=== PATIENT | female | born 1960 | race Caucasian/White ===

== ENCOUNTER 2019-12-22 17:19 | Emergency (ER) | payer OTHER ==
[~2019-12-22] VITALS: Ht 162.6 cm; Wt 45.4 kg
[2019-12-22 17:58] LABS: HEMATOCRIT 35.6 % (37.0-47.0); MCH 29.2 pg (26.0-34.0); MCHC 33.7 g/dL (28.0-37.0); MCV 86.6 fL (80.0-100.0); RBC 4.11 mil/uL (4.20-5.00); RDW 14.6 % (10.5-14.5); WBC 5.9 thou/uL (4.0-11.0)
[2019-12-22 18:04] LABS: ANION GAP 9 mmol/L (7-16); BUN 16 mg/dL (7-18); CALCIUM 8.9 mg/dL (8.5-10.1); CHLORIDE 107 mmol/L (98-107); CO2 28 mmol/L (21-32); CREATININE 0.7 mg/dL (0.6-1.0); GLUCOSE 86 mg/dL (74-106); SALICYLATE < 2.8 mg/dL (2.8-20.0); SODIUM 144 mmol/L (136-145)
[2019-12-22 18:57] LABS: URINE BILIRUBIN NEGATIVE (Negative); URINE BLOOD TRACE (Negative); URINE CLARITY CLEAR; URINE COLOR YELLOW; URINE GLUCOSE-RANDOM* NEGATIVE (Negative); URINE KETONES NEGATIVE (Negative); URINE LEUKOCYTES-REFLEX 2+ (Negative); URINE NITRITE-REFLEX NEGATIVE (Negative); URINE PROTEIN (DIPSTICK) 1+ (Negative); URINE UROBILINOGEN 0.2 E.U./dl (0.2-1.0)
[2019-12-22 19:05] LABS: CRYSTALS None Seen /LPF (None Seen); MUCUS 0-3 Light strn/LPF (None Seen); SQUAMOUS 4-10 Moderate /LPF (0-3); URINE RBC 0-2 Rare /HPF (0-2); URINE WBC-REFLEX 6-15 Few /HPF (0-5)
[2019-12-22 19:05] LABS: AMP/METHAMP POSITIVE (Negative); BARBITURATES Negative (Negative); BENZODIAZEPINES Negative (Negative); COCAINE POSITIVE (Negative); METHADONE Negative (Negative); OPIATES Negative (Negative); PCP Negative (Negative)
[2019-12-22 19:06] LABS: HYALINE CASTS 0-3 Few /LPF (None Seen)
[2019-12-22 22:01] VITALS: BP 142/100
--- NOTE | 2019-12-23 07:44 | EKG ---
[facility] [place] [address] ELECTROCARDIOGRAM REPORT Name: TANYA MULLINS Room #: [facility]#: [id number] Admission: 12/22/19 Attend Phys: Discharge: 12/22/19 Date of : 64 Report #: [id number] THIS REPORT FOR: cc: FAM - Family physician unknown FAM - Family physician unknown Kb Talbert MD [facility] ~ THIS REPORT FOR: //name// [facility] ED Test Date: 2019-12-22 Test Time: 19:49:19 Pat Name: TANYA MULLINS Department: Room: Gender: F Solderer: Maico : 1960 Requested By: Frank James Order Number: [id number] MD: Kb Talbert Measurements Intervals [place] Rate: 82 P: 84 AL: 134 QRS: -41 QRSD: 92 T: 85 QT: 402 QTc: 470 Interpretive Statements Sinus rhythm Leftward axis Nonspecific T wave abnormality No previous ECG available for comparison Electronically Signed On 12-23-2019 7:44:17 CDT by Kb Talbert [email or web address] <ELECTRONICALLY SIGNED> By: Kb Talbert MD, [facility] 12/23/19 0744 48 48 Kb Talbert MD, [facility]ACC /EPI
== END 2019-12-22 22:01 | disposition home or self-care (01) ==
LOC: ER 17:19
PROVIDERS: Emergency Medicine
DX: S62.611A Displaced fracture of proximal phalanx of left index finger, initial encounter for closed fracture (principal); F15.10 Other stimulant abuse, uncomplicated; F14.10 Cocaine abuse, uncomplicated; F19.90 Other psychoactive substance use, unspecified, uncomplicated; F17.210 Nicotine dependence, cigarettes, uncomplicated; W22.8XXA Striking against or struck by other objects, initial encounter; Y93.89 Activity, other specified; Y92.89 Other specified places as the place of occurrence of the external cause; Y99.8 Other external cause status

== ENCOUNTER 2021-03-07 13:48 | Emergency (ER) | payer OTHER ==
[~2021-03-07] VITALS: Ht 165.1 cm; Wt 52.2 kg
--- NOTE | ~2021-03-07 | EMS ---
[address] [address] EMS Patient Care Report Name: TANYA MULLINS Room #: REG CINDI Fried#: [id number] Admission: 03/07/21 Attend Phys: Discharge: Date of : 64 Report #: [id number] THIS REPORT FOR: //name// Report Transmitted: 03/07/2021 13:38 EMS Care Summary [place], [place]/[facility] Incident [id number] @ 03/07/2021 12:47 Incident Location [address] [place] [address] Patient TANYA MULLINS Female, 61 Years 1960 Patient Address [address] [place] [address] [address] [place] [address] Patient History Congestive Heart Failure (CHF),Gastrointesinal Hemorrhage,Anxiety Disorder (Panic Attacks),Post Traumatic Stress Disorder (PTSD),Anemia,Deep Vein Thrombosis,Hypothyroidism,Malnutrition,Supraventricular Tachycardia (SVT),Cardiomyopathy, Patient Allergies No known allergies, Patient Medications Tramadol, Pantoprazole, Depakote, Lidocaine, Metoprolol, Buspirone, Magnesium Oxide, Furosemide, Multivitamin, Acetaminophen, Mirtazapine, Chief Complaint COMBATIVE PER [place] STAFF Disposition Transported No Lights/[place] Dispatch Reason Psychiatric Problem/Abnormal Behavior/Suicide Attempt Transported To [address] [address] EMS Patient Care Report Name: TANYA MULLINS Room #: REG CINDI Fried#: [id number] Admission: 03/07/21 Attend Phys: Discharge: Date of : 64 Report #: [id number] Narrative M528 ARRIVES TO FIND 61 Y/O F PT WITH NO COMPLAINTS. PER [place] STAFF PT HAS BEEN UNCOOPERATIVE AND COMBATIVE. PT DENIES THIS AND DENIES SI/HI. PT ORIGINALLY DOES NOT WANT TO GO TO THE HOSPITAL HOWEVER AFTER CONVERSING WITH EMS AND PD FOR SOME TIME SHE CHANGES HER MIND AND AGREES TO GO. ASSESSMENTS AND TREATMENST NOTED. PT AMBULATORY AND WALKS TO AMBULANCE. PT SECURED TO [facility]. PT TRANSPORTED. M528 ARRIVES AT DESTINATION. PT AMBULATORY AND WALKS TO ROOM IN ED. PT CARE TRANSFERRED. M528 RETURNS TO SERVICE. Initial Vitals @13:31P: 139,R: 18,BP: 132/81,Pain: 0/10,GCS: 15,SpO2: 97,Revised Trauma: 12, @13:30P: 134,R: 18,BP: 123/78,Pain: 0/10,GCS: 15,CO: 2,SpO2: 97,Revised Trauma: 12, Assessments @12:55MENTAL:No Abnormalities,SKIN:No Abnormalities,HEENT:Head/Face: No Abnormalities,Eyes: No Abnormalities,Neck/Airway: No Abnormalities,LUNG SOUNDS:General: No Abnormalities,Left Upper: No Abnormalities,Right Upper: No Abnormalities,Left Lower: No Abnormalities,Right Lower: No Abnormalities,ABDOMEN:General: No Abnormalities,Left Upper: No Abnormalities,Right Upper: No Abnormalities,Left Lower: No Abnormalities,Right Lower: No Abnormalities,PELVIS//GI:No Abnormalities,EXTREMITIES:Left Arm: No Abnormalities,Right Arm: No Abnormalities,Left Leg: No Abnormalities,Right Leg: No Abnormalities,PULSE:NEURO:No Abnormalities,@13:35MENTAL:No Abnormalities,SKIN:No Abnormalities,HEENT:Head/Face: No Abnormalities,Eyes: No Abnormalities,Neck/Airway: No Abnormalities,LUNG SOUNDS:General: No Abnormalities,Left Upper: No Abnormalities,Right Upper: No Abnormalities,Left Lower: No Abnormalities,Right Lower: No Abnormalities,ABDOMEN:General: No Abnormalities,Left Upper: No Abnormalities,Right Upper: No Abnormalities,Left Lower: No Abnormalities,Right Lower: No Abnormalities,PELVIS//GI:No Abnormalities,EXTREMITIES:Left Arm: No Abnormalities,Right Arm: No Abnormalities,Left Leg: No Abnormalities,Right Leg: No Abnormalities,PULSE:NEURO:No Abnormalities, Impression Need for continuous medical supervision Procedures @12:55 ALS Assessment Response: UnchangedSucceeded Timeline 12:45,Call Received 12:45,Dispatch Notified 12:47,Dispatched [address] [address] EMS Patient Care Report Name: TANYA MULLINS Room #: REG CINDI Fried#: [id number] Admission: 03/07/21 Attend Phys: Discharge: Date of : 64 Report #: [id number] 12:48,En Route 12:52,On Scene 12:55,At Patient 12:55,ALS Assessment,Response: UnchangedSucceeded, 13:30,BP: 123/78 M,PULSE: 134,RR: 18 R,SPO2: 97 Ox,ETCO2: ,BG: ,PAIN: 0,GCS: 15, 13:31,BP: 132/81 M,PULSE: 139,RR: 18 R,SPO2: 97 Ox,ETCO2: ,BG: ,PAIN: 0,GCS: 15, 13:35,Depart Scene 13:44,At Destination 13:56,Call Closed Disclaimer v1.1 Copyright 2020 [employer] This EMS Care Summary contains data elements from the applicable legal record (which may be displayed differently). It is designed to provide pertinent information for the following purposes: continuity of care, clinical quality, and state data reporting. The complete legal record is available to ED staff and administrators of the receiving hospital in [employer] Patient Tracker. All data is provided "as is."
--- NOTE | ~2021-03-07 | EMS ---
[address] [address] EMS Patient Care Report Name: TANYA MULLINS Room #: DEP CINDI Fried#: [id number] Admission: 03/07/21 Attend Phys: Discharge: 03/07/21 Date of : 64 Report #: [id number] THIS REPORT FOR: //name// Report Transmitted: 03/09/2021 12:56 EMS Care Summary [place], [place]/[facility] Incident [id number] @ 03/07/2021 12:47 Incident Location [address] [place] [address] Patient TANYA MULLINS Female, 61 Years 1960 Patient Address [address] [place] [address] [address] [place] [address] Patient History Congestive Heart Failure (CHF),Gastrointesinal Hemorrhage,Anxiety Disorder (Panic Attacks),Post Traumatic Stress Disorder (PTSD),Anemia,Deep Vein Thrombosis,Hypothyroidism,Malnutrition,Supraventricular Tachycardia (SVT),Cardiomyopathy, Patient Allergies No known allergies, Patient Medications Tramadol, Pantoprazole, Depakote, Lidocaine, Metoprolol, Buspirone, Magnesium Oxide, Furosemide, Multivitamin, Acetaminophen, Mirtazapine, Chief Complaint COMBATIVE PER [place] STAFF Disposition Transported No Lights/[place] Dispatch Reason Psychiatric Problem/Abnormal Behavior/Suicide Attempt Transported To [address] [address] EMS Patient Care Report Name: TANYA MULLINS Room #: DEP CINDI Fried#: [id number] Admission: 03/07/21 Attend Phys: Discharge: 03/07/21 Date of : 64 Report #: [id number] Narrative M528 ARRIVES TO FIND 61 Y/O F PT WITH NO COMPLAINTS. PER [place] STAFF PT HAS BEEN UNCOOPERATIVE AND COMBATIVE. PT DENIES THIS AND DENIES SI/HI. PT ORIGINALLY DOES NOT WANT TO GO TO THE HOSPITAL HOWEVER AFTER CONVERSING WITH EMS AND PD FOR SOME TIME SHE CHANGES HER MIND AND AGREES TO GO. ASSESSMENTS AND TREATMENST NOTED. PT AMBULATORY AND WALKS TO AMBULANCE. PT SECURED TO [facility]. PT TRANSPORTED. M528 ARRIVES AT DESTINATION. PT AMBULATORY AND WALKS TO ROOM IN ED. PT CARE TRANSFERRED. M528 RETURNS TO SERVICE. Initial Vitals @13:31P: 139,R: 18,BP: 132/81,Pain: 0/10,GCS: 15,SpO2: 97,Revised Trauma: 12, @13:30P: 134,R: 18,BP: 123/78,Pain: 0/10,GCS: 15,CO: 2,SpO2: 97,Revised Trauma: 12, Assessments @12:55MENTAL:No Abnormalities,SKIN:No Abnormalities,HEENT:Head/Face: No Abnormalities,Eyes: No Abnormalities,Neck/Airway: No Abnormalities,LUNG SOUNDS:General: No Abnormalities,Left Upper: No Abnormalities,Right Upper: No Abnormalities,Left Lower: No Abnormalities,Right Lower: No Abnormalities,ABDOMEN:General: No Abnormalities,Left Upper: No Abnormalities,Right Upper: No Abnormalities,Left Lower: No Abnormalities,Right Lower: No Abnormalities,PELVIS//GI:No Abnormalities,EXTREMITIES:Left Arm: No Abnormalities,Right Arm: No Abnormalities,Left Leg: No Abnormalities,Right Leg: No Abnormalities,PULSE:NEURO:No Abnormalities,@13:35MENTAL:No Abnormalities,SKIN:No Abnormalities,HEENT:Head/Face: No Abnormalities,Eyes: No Abnormalities,Neck/Airway: No Abnormalities,LUNG SOUNDS:General: No Abnormalities,Left Upper: No Abnormalities,Right Upper: No Abnormalities,Left Lower: No Abnormalities,Right Lower: No Abnormalities,ABDOMEN:General: No Abnormalities,Left Upper: No Abnormalities,Right Upper: No Abnormalities,Left Lower: No Abnormalities,Right Lower: No Abnormalities,PELVIS//GI:No Abnormalities,EXTREMITIES:Left Arm: No Abnormalities,Right Arm: No Abnormalities,Left Leg: No Abnormalities,Right Leg: No Abnormalities,PULSE:NEURO:No Abnormalities, Impression Need for continuous medical supervision Procedures @12:55 ALS Assessment Response: UnchangedSucceeded Timeline 12:45,Call Received 12:45,Dispatch Notified 12:47,[place] [address] EMS Patient Care Report Name: TANYA MULLINS Room #: ALBA Fried#: [id number] Admission: 03/07/21 Attend Phys: Discharge: 03/07/21 Date of : 64 Report #: [id number] 12:48,En Route 12:52,On Scene 12:55,At Patient 12:55,ALS Assessment,Response: UnchangedSucceeded, 13:30,BP: 123/78 M,PULSE: 134,RR: 18 R,SPO2: 97 Ox,ETCO2: ,BG: ,PAIN: 0,GCS: 15, 13:31,BP: 132/81 M,PULSE: 139,RR: 18 R,SPO2: 97 Ox,ETCO2: ,BG: ,PAIN: 0,GCS: 15, 13:35,Depart Scene 13:44,At Destination 13:56,Call Closed Disclaimer v1.1 Copyright 2020 [employer] This EMS Care Summary contains data elements from the applicable legal record (which may be displayed differently). It is designed to provide pertinent information for the following purposes: continuity of care, clinical quality, and state data reporting. The complete legal record is available to ED staff and administrators of the receiving hospital in [employer]'s Patient Tracker. All data is provided "as is."
[2021-03-07 14:48] LABS: ABSOLUTE NEUTROPHILS 2.1 thou/uL (1.4-8.2); BASOPHILS 0.3 % (0.0-2.0); EOSINOPHILS 2.2 % (0.0-3.0); HEMOGLOBIN 8.7 gm/dL (12.0-15.0); MCH 22.9 pg (26.0-34.0); MCHC 32.2 g/dL (28.0-37.0); MCV 71.1 fL (80.0-100.0); MONOCYTES 15.5 % (1.0-8.0); PLATELET COUNT 225 thou/uL (150-400); RDW 18.2 % (10.5-14.5); WBC 4.2 thou/uL (4.0-11.0)
[2021-03-07 14:58] LABS: AMP/METHAMP Negative (Negative); BARBITURATES Negative (Negative); BENZODIAZEPINES Negative (Negative); COCAINE Negative (Negative); METHADONE Negative (Negative); OPIATES Negative (Negative); PCP Negative (Negative)
[2021-03-07 15:02] LABS: CALCIUM 8.8 mg/dL (8.5-10.1); CREATININE 0.9 mg/dL (0.6-1.0); POTASSIUM 3.3 mmol/L (3.5-5.1)
[2021-03-07] MEDS ORDERED: TYLENOL325 MG PO (15:39)
[2021-03-07] MEDS ORDERED: ATIVAN0.5 M1 PO (15:40)
[2021-03-07] MEDS ORDERED: BUSPIRONE HCL5 MG PO (15:40)
[2021-03-07] MEDS ORDERED: DEPAKOTE250 MG PO (15:41)
[2021-03-07] MEDS ORDERED: CEPHALEXIN500 MG PO (15:41)
[2021-03-07] MEDS ORDERED: FUROSEMIDE 40 M40 MG PO (15:42)
[2021-03-07] MEDS ORDERED: CULTURELLE KID1 EAC1 PO (15:42)
[2021-03-07] MEDS ORDERED: MAGOX 400400 MG PO (15:43)
[2021-03-07] MEDS ORDERED: TOPROL XL25 MG PO (15:43)
[2021-03-07] MEDS ORDERED: REMERON15 M2 PO (15:43)
[2021-03-07] MEDS ORDERED: SUPER THERAVIT1 EACH PO (15:44)
[2021-03-07] MEDS ORDERED: PROTONIX40 M2 PO (15:44)
[2021-03-07] MEDS ORDERED: SALONPAS1 EACH TOP (15:44)
[2021-03-07] MEDS ORDERED: TRAMADOL 50 MG50 MG PO (15:45)
[2021-03-07 16:06] LABS: HYPOCHROMASIA 3+
[2021-03-07 16:07] LABS: MICROCYTES 2+
[2021-03-07 16:08] LABS: ANISOCYTOSIS 2+; POIKILOCYTOSIS 1+
[2021-03-07 20:11] VITALS: BP 148/88
--- NOTE | 2021-03-08 07:18 | EKG ---
[place] [address] [facility] [place] [address] ELECTROCARDIOGRAM REPORT Name: TANYA MULLINS Room #: [facility] CINDI Fried#: [id number] Admission: 03/07/21 Attend Phys: Discharge: 03/07/21 Date of : 64 Report #: [id number] [facility] ED Test Date: 2021-03-07 Test Time: 14:37:37 Pat Name: TANYA MULLINS Department: Room: Gender: F Dealer Compliance Representative: davidson : 1960 Requested By: Bonilla Brown Order Number: [id number] MD: Brien Moore Measurements Intervals [place] Rate: 113 P: 82 OR: 147 QRS: -13 QRSD: 88 T: 53 QT: 365 QTc: 501 Interpretive Statements Sinus tachycardia Low voltage, precordial leads Borderline prolonged QT interval Compared to ECG 12/22/2019 19:49:19 Low QRS voltage now present Sinus rhythm no longer present Left-axis deviation no longer present T-wave abnormality no longer present Electronically Signed On 03-08-2021 7:18:14 COURTROOM DEPUTY OR CALENDAR CLERK by Brien Moore [email or web address] <ELECTRONICALLY SIGNED> By: Brien Moore MD, [facility] 03/08/21 0718 1437 1437 Brien Moore MD, [facility] /EPI
== END 2021-03-07 20:10 ==
LOC: ER 13:48
PROVIDERS: Emergency Medicine
DX: F28 Other psychotic disorder not due to a substance or known physiological condition (principal); Z20.822 Contact with and (suspected) exposure to COVID-19; F17.210 Nicotine dependence, cigarettes, uncomplicated; Z79.899 Other long term (current) drug therapy

== ENCOUNTER 2021-03-07 19:37 | Inpatient (IN) | payer OTHER ==
[~2021-03-07] VITALS: Ht 162.6 cm; Wt 66.8 kg
[~2021-03-07 19:37] MED LIST: ATIVAN0.5 M1 PO; BUSPIRONE HCL5 MG PO; CEPHALEXIN500 MG PO; CULTURELLE KID1 EAC1 PO; DEPAKOTE250 MG PO; FUROSEMIDE 40 M40 MG PO; MAGOX 400400 MG PO; PROTONIX40 M2 PO; REMERON15 M2 PO; SALONPAS1 EACH TOP; SUPER THERAVIT1 EACH PO; TOPROL XL25 MG PO; TRAMADOL 50 MG50 MG PO; TYLENOL325 MG PO
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
[2021-03-08 06:35] LABS: CHOLESTEROL 207 mg/dL (<200); HDL CHOLESTEROL 43 mg/dL (>40); LDL CHOLESTEROL 138 mg/dL (<100); TC:HDL 4.8 Ratio (Not establshd); TRIGLYCERIDE 134 mg/dL (<150); VLDL 27 mg/dL (<40)
[2021-03-08 06:39] LABS: SERUM ASSESSMENT Clear
[2021-03-08 09:45] LABS: % SATURATION 9 % (20-39); IRON 30 ug/dL (50-170); TIBC 336 ug/dL (250-450)
[2021-03-08 10:14] LABS: FOLIC ACID 24.2 ng/mL (8.6-58.9)
[2021-03-08 10:57] VITALS: BP 100/59
--- NOTE | 2021-03-08 17:49 | NUR ---
BERLIN and Dr. Blanco met with the Pt in her room. Pt was able to give a history. Pt reported being dx with Bipolar. Pt currently lives at [facility] and prior to that Pt was homeless. Pt reported having some issues [facility]. Due to these issues Pt was moved into another room. Pt described having trouble locating some of her things after being moved to a new room. Pt admitted to being manic for at least a week. Pt stated the facility called the ambulance and had her brought to the hospital. Medications were discussed and Pt is in agreement with the medication changes. BERLIN informed the Pt that she would be returning to the facility. Pt expressed not wanting to go back. Dr. Blanco did inform the Pt that her DPOA was going to be enacted at this time. BERLIN and Dr. Blanco were able to talk to the DPOA, Mickey [phone], by phone. Mickey was able to give hx on the Pt. 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 Pt was homeless until going to [place]. Pt was admitted to [facility] in 08/2020 and was in ICU for a month. Pt was also at [facility]. Pt dx with Bipolar and a personality disorder. Mickey stated he has had trouble getting a hold of the nursing facility about his concerns and wellbeing of the Pt. Mickey had no other questions or concerns at this time. BERLIN will continue to follow
--- NOTE | 2021-03-08 18:57 | NUR ---
Patient care resummed; patient in her room resting comfortably in a supine position; Patient presented manic to DIRECTOR HR COMMUNICATIONS, calm and cooperative at times others patient very demanding and hateful towards staff; A&O*3; lung sounds clear bilaterally, unlabored; Abdomen soft, nondistended, with BS*4Q; Patient denies SI/HI/AVH, Depression; states she has anxiety and generalized pain; Patient has an ulcer to the Left pinkie toe; scabbing presented;
[2021-03-08 19:16] VITALS: BP 86/56
[2021-03-09 01:11] LABS: GLYCOHEMOGLOBIN (HGB A1C) 5.6 % (4.8-5.6)
--- NOTE | 2021-03-09 02:02 | NUR ---
PATIENT CARE WAS RESUMED AT 1900. SHE WAS IN BED AND WITH EYES CLOSED. SHE AMBULATES AND ABLE TO VERBALIZE HER CONCERNS. SHE IS CONTINT OF BOWEL AND BLADDER. SHE TOLD THIS NURSE THAT SHE HAD A BM AND FLUSHED IT THIS SHIFT. WHEN TOLD ABOUT STOOL SAMPLE SHE SCREAMING AT THIS NURSE,"TAKE THAT UP WITH YOUR NURSES, i DID NOT KNOW THAT YOU NEEDED A SAMPLE". SHE SAID THE STOOL WAS BROWN IN COLOUR. THIS NURSE OFFERED TO INSERT A SUPOSITORY AND SHE REFUSED. "NO IT COMES WHEN IT COMES". SHE WAS REMINDED TO NOTIFY THE NURSES OF HER NEXT BM FOR SAMPLE COLLECTION.SHE IS CONTINENT OF BOWEL AND BLADDER,TOOK HER MEDS WHOLE BUT WANT TO KNOW ALL HER MEDS BEFORE SWALLOWING. LUNGS ARE CLEAR BS ACTIVE X4 QUADS. BED IS LOW, LOCKED AND ALARMED. SHE WAS PICKING ON THE SCAB TO HER LEFT SMALL TOE AND WAS ADVISED TO KEEP HER HANDS OFF THE SCAB AND TO ASK FOR ASSISTANCE WITH ALL TRANSFER. TO HER LEFT SMALL TOE AND URSE REMINDED HER TO KEEP HER HANDS OFF THE SCAB, BUT SHE RESPONDED"I WILL TAKE CARE OF IT YOU DONT TELL ME WHAT I DO"
[2021-03-09 05:54] LABS: ABSOLUTE NEUTROPHILS 0.7 thou/uL (1.4-8.2); BASOPHILS 0.3 % (0.0-2.0); EOSINOPHILS 3.4 % (0.0-3.0); HEMATOCRIT 28.2 % (37.0-47.0); LYMPHOCYTES 58.7 % (24.0-44.0); MCH 22.9 pg (26.0-34.0); MCHC 31.9 g/dL (28.0-37.0); MCV 71.8 fL (80.0-100.0); MONOCYTES 13.5 % (1.0-8.0); PLATELET COUNT 220 thou/uL (150-400); POLYS 24.1 % (36.0-66.0); RBC 3.93 mil/uL (4.20-5.00); RDW 19.3 % (10.5-14.5)
[2021-03-09 06:07] LABS: CALCIUM 9.1 mg/dL (8.5-10.1); CREATININE 0.8 mg/dL (0.6-1.0); MAGNESIUM 1.7 mg/dL (1.8-2.4); POTASSIUM 4.1 mmol/L (3.5-5.1)
--- NOTE | 2021-03-09 09:26 | NUR ---
Assess due to new admit to [facility] with bipolar, loni, aggressive behavior. Visit this am in room, pt had breakfast and ate fair amount. States eating behaviors "come and go" depending on manic state. Ate 75% all meals yesterday. No significant wt changes, usually weighs 145-150 lb. Hx CHF-on lasix/KCL. Chol 207 and LDL 138. B12 and folate levels are acceptable. Presents low nutrition risk.
[2021-03-09 10:41] VITALS: BP 147/86
--- NOTE | 2021-03-09 16:06 | NUR ---
Alert and orientated X4. Denies SI/HI. Calm, cooperative and compliant. Asking appropriate questions. Breath sounds clear. Reg HR auscultated. Color pink with brisk capillary refill and palpable peripheral pulses. No edema noted. Active bowel sounds over soft, rounded abdomen. Clear yellow urine per toilet. States she had BM yesterday. Spoke with Dr. Devi, will follow CBC for trending H/H. Medium formed brown BM in afternoon. Pt states she would like BM tested as planned this AM. Dr. Devi notified. Does not want to send stool, discarded. Small sore on L pinky toe, provided bandaid. Pt. requesting antibiotic ointment, spoke with Dr. Devi and placed verbal order.
--- NOTE | 2021-03-09 18:12 | NUR ---
States she has back pain, requesting Tylenol. States she has similiar pain about once a month. Currently watching TV with peers without s/o distress.
[2021-03-09 19:24] VITALS: BP 108/84
[2021-03-09 19:25] VITALS: BP 108/84
--- NOTE | 2021-03-10 01:45 | NUR ---
PATIENT CARE WAS RESUMED AT 1900 AND SHE WAS SHE WAS IN THE DINIING AREA SOCIALIZING WITH FRIENDS. SHE AMBULATES AND SHE IS ABLE TO VERBALIZE SOME NEEDS. LUNGS ARE CLEAR BS ACTIVE X4 QUADS. SHE IS CONTINENT OF BOWEL AND BLADDER. SHE TOOK HER MEDS WHOLE AND SHE IS ABLE TO VERBALIZE HER CONCERNS. SHE DENIES PAINS/SI/AVH/HI. BED IS LOW, LOCKED AND SHE HAS A NON SKID SOCKS ON.Q12 MINUTES CHECKS ARE ONGOING, CONTINUE CARE
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
[2021-03-10 07:54] LABS: HEMATOCRIT 30.8 % (37.0-47.0); HEMOGLOBIN 9.7 gm/dL (12.0-15.0); MCH 22.7 pg (26.0-34.0); MCHC 31.4 g/dL (28.0-37.0); MCV 72.4 fL (80.0-100.0); RBC 4.25 mil/uL (4.20-5.00); WBC 3.7 thou/uL (4.0-11.0)
[2021-03-10 09:36] VITALS: BP 163/106
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
[2021-03-10 14:15] VITALS: BP 123/81
--- NOTE | 2021-03-10 15:08 | NUR ---
Alert and oriented X4. Very hyperverbal. Giving peace offering to night RN d/t disagreement. Denies SI/HI. Up ambulating with regular, steady gait. Ativan given PO per order d/t loni. Euphoric and happy. Breath sounds clear. Reg HR auscultated. Color pink with brisk capillary refill and palpable peripheral pulses. Independent with voiding. Active bowel sounds over soft, rounded abdomen. BM yesterday evening. 0.5 cm wound on L pinky toe, cleaned with NS, antibiotic ointment applied with pink foam drsg. Currently in group with peers, loni slightly improved, no s/o distress.
[2021-03-10 19:12] VITALS: BP 120/90
--- NOTE | 2021-03-11 03:42 | NUR ---
03-10-21 CARE TRANSFERRED 1899. PT PRESENTS HYPERVERBAL AND RESTLESS, AAOX4, PULSE ELEVATED, VS PT BASELINE; RR EVEN AND NONLABORED ON RA, LUNGS CLEAR/DIMINISHED, HT RR, ABD SOFT/ACTIVE/NONTENDER. PT DENIES SI/HI AND PAIN. PT COOPERATIVE THROUGHOUT NURSING ASSESSMENT. PT WILL CONTINUE TO BE MONITOR PER [facility] PROT[facility]OL.
[2021-03-11 09:05] VITALS: BP 128/84
[2021-03-11 09:55] VITALS: BP 128/84
--- NOTE | 2021-03-11 10:51 | NUR ---
RESUMMED CARE FROM OVERNIGHT SHIFT THIS AM, PATIENT ALERT ORIENTED TIMES 4. PATIENT DENIES SI/HI/AH/VH AT PRESENT PATIENT ATE BREAKFAST TOOK MEDICATION WITHOUT INCIDENCE. PATIENTS ABDOMEN SOFT BOWEL PATIENTS LUNGS CLEAR PATIENT PARTICIPATED IN ALL GROUPS. PATIENT HYPERVERBAL AND SOMETIMES INTRUSIVE WILL CONTINUE TO MONITOR PATIENT FOR SAFETY AND BEHAVIORS.
[2021-03-11 19:28] VITALS: BP 102/62
[2021-03-11 20:00] VITALS: BP 102/62
--- NOTE | 2021-03-12 00:58 | NUR ---
PATIENT DID ALOT OF PACING AND EXIT SEEKING AT BEGINNING OF THE SHIFT. SHE WAS SENT TO HER ROOM BY ANOTHER NURSE D/T PATIENT WAS ANGRY OVER A DAYSHIFT ISSUE WHEN SHE WAS TOLD SHE COULD NOT USE THE PHONE D/T BAD BEHAVIOR. SHE HAD ALREADY MADE 2 PHONE CALLS BEFORE THEN. PATIENT CAME OUT OF ROOM NEAR 1999 AND WAS CALM AND COOPERATIVE. SHE APOLOGIZED TO THIS NURSE FOR HER BAD BEHAVIOR AND ANGER REACTION TO DAY NURSE. WE DISCUSSED WHAT SHE COULD HAVE DONE DIFFERENTLY. PATIENT TOOK HER MEDS WHOLE WITH WATER. SHE HAD HS SNACK. SHE DENIES SI/HI/AVH. SHE WAS CALM THE REST OF THE EVENING AND WENT TO BED BEFORE MIDNIGHT. SHE DENIES PAIN. SHE AMBULATES WITH A STEADY GAIT. ROUTINE ROUNDS TO ASSESS STATUS AND SAFETY OF PATIENT. CONTINUING TO MONITOR.
--- NOTE | 2021-03-12 02:26 | NUR ---
PATIENT AWOKE D/T SHE WET HER BED. SHE GOT UP AND WASHED HERSELF AND ASKED FOR NEW PANTS AND SOCKS. THIS NURSE ASSISTED IN HELPING HER. PATIENT WAS PLEASANT AND COOPERATIVE. PATIENT UP TO DAYROOM D/T COULDN'T GO BACK TO SLEEP. CONTINUING TO MONITOR.
--- NOTE | 2021-03-12 04:55 | NUR ---
PATIENT HAS BEEN UP IN DINING ROOM SINCE 2AM. SHE HAS BEEN HYPERVERBAL SPEAKING WITH STAFF. SHE SITS AND DRAWS ON PAPER AND WAS UP MOVING CHAIRS AROUND. PATIENT HAS BEEN EASILY REDIRECTED AND COOPERATIVE. CONTINUING TO MONITOR.
[2021-03-12 09:31] VITALS: BP 134/89
[2021-03-12 09:32] VITALS: BP 134/89
--- NOTE | 2021-03-12 17:55 | NUR ---
Brooke was alert and oriented x4 this shift. She presented as labile as she was easily irritable throughout the day but also very tearful. She was intrusive with other pt's on the unit and boundaries had to inforced but pt did not respond well when boundaries were set as she would become defensive. She was also noted to flip people off, including MARKETING UNDERWRITER, in the dayroom and required to be talked to about this, but again pt became defensive. Pt's behavior and thought process is very disorganized and pt can be difficult to redirect at times. Pt had to be redirected form group a couple times as she coud not participate appropriately and was restless, constantly being disruptive. Pt was medication compliant, without difficulty this shift. She did have a couple episodes of incontinence with bowel and bladder. She took a shower this shift and was able to clean herself up. She denied physical complaints this shift. Pt fell asleep shortly after dinner and is currently resting in her room; will continue to monitor.
[2021-03-12 19:02] VITALS: BP 108/66
[2021-03-12 22:08] VITALS: BP 108/66
--- NOTE | 2021-03-13 03:26 | NUR ---
PATIENT CARE WAS RESUMED AT 1900. SHE IS ALERT ANS AMBULATES. SHE C/O OF A STAFF WAKING HER UP.LUNGS ARE CLEAR BS ACTIVE X4 QUAD. SHE IS CONTINET OF BOWEL AND BLADDER. SHE CONTINUES TO REQUEST FOR HER SHOES AND SAYING SHE NEED TO BE TAEST FOR UTI AND STOOL WAS FOUND IN A CUP AT HER DOOR WHICH SHE SAID WAS FOR SPECIMEN. WENT TO OTHER PATIENT DOOR AND SAT DOWN. SHE TOOK HER MEDS WHOLE AND WOULD NOT COME OUT OF THE DININIG ROOM SNACK AREA FOR STAFF TO CLOSE THE DOOR. SHE CONTINUES TO REQUEST FOR SNACKS AFTER SHE WAS GIVEN ONE. SHE FINALLY WENT TO BED.BED IS LOW AND LOCKED. Q 12 MINUTES CHECK IS ONGOING. CONTINUE TO MONITOR.
[2021-03-13 09:00] VITALS: BP 129/97; BP 134/89
--- NOTE | 2021-03-13 09:21 | NUR ---
03-13-2021--8111--Patient came into my office statng she wants to go back to [place]. I explained her behaviors need to change so she can go back. Right now staff is attempting to get her behaviors under control with behaviors modification (redirection and cueing) and with medications. I reminded her she needed to be in group. She stated they won't let me in there. I told her it is part of her treatment and she needs to go to group. She requested I walk in to group woth her. She was accepted into the group with no negative comments.
--- NOTE | 2021-03-13 11:02 | NUR ---
BECAME AGITATED AND COMBATIVE WITH NURSING STAFF AT BREAKFAST-SLAMMING A CONTAINER OF JUICE AGAINST TABLE VIOLENTLY CAUSING CONTAINER TO BREAK APART AND THEN THREW AT ARCHIVIST MILITARY HISTORY. DID WALK BACK TO ROOM AFTER STAFF SPENT APPROX 10 MINUTES GIVING VERBAL DIRECTION. ONCE IN ROOM WAS ABLE TO SIT AND CONVERSE WITH STAFF -SPEECH IS LOUD AND PRESSURED-DELUSIONAL CLAIMING THAT ARCHIVIST MILITARY HISTORY WAS BEING CONTROLLED BY MYLES AND HE WAS ORCHESTRATING STAFF BEHAVIOR AND INSTRUCTING STAFF TO "PICK ON" PT. STATES "THEY CAN'T HELP IT -IT IS THE DEVIL MAKING THEM DO IT" DID TAKE AM MEDS AND LATER WAS ABLE TO COME OUT AND SIT CALMLY IN DAYROOM AND LISTEN TO END OF RT GROUP.
--- NOTE | 2021-03-13 17:36 | NUR ---
[place] and Dr. Ly met with the Pt concerning her behaviors on the unit. Pt has been intrusive with others, not following directions of staff, pooped in a cup and left it outside her room, and splashing tea when upset with staff. Pt acknowledges these behaviors. Pt express feeling mistreated by staff. Pt continues to dislay loni, but was able to have some insight into the issues with her behaviors. Pt had no other questions or concerns. SW will continue to follow the Pt
[2021-03-13 19:35] VITALS: BP 115/82
[2021-03-13 20:06] VITALS: BP 115/82
--- NOTE | 2021-03-13 22:08 | NUR ---
Assumed care on 03/13/21 @ 1900, in a robe, in room when assessment done, somewhat cooperative with assessment and medication, although wants to lie down and cover head up several times in the process. Does come to the day room for snack and eats 100 % of an ice cream. HRRR, Lungs diminished, ABD N x4Q, reports bm today, confirmed by day nurse who also reports that she bm'd in a cup and set it in the hallway. Hoarding cups of coffee/tea in her room as well as bread and salt/pepper. Room cleaned and cleared of previous food/beverages with the agreement of the patient. Low fall risk. Bed noted to not have sheets and blankets, one top sheet is all.
--- NOTE | 2021-03-14 10:14 | NUR ---
RT Progress Note- Brooke has been present in the milieu each day since her admission, as well as most recreation therapy groups. She displays manic behaviors consistently with little insight to them. Behaviors include poor social boundaries, grandoise thoughts, pressured speech, etc. Response to redirection in group is variable and has resulted in her storming out of groups. CONTACT CENTER ASSOCIATE will continue to encourage Brooke's participation and improvement of impulse control and social skills.
--- NOTE | 2021-03-14 11:20 | NUR ---
Alert and orientated X4. Calm and cooperative. Denies SI/HI. Sleepy this am and not hyperverbal as she has been previously. Ambulates with regular, steady gait. Breath sounds clear. Reg HR auscultated. Color pink with brisk capillary refill and palpable peripheral pulses. No edema. Independent with voiding. Active bowel sounds over soft, flat abdomen. Currently being showered by drapery hand. Room cleaned and pt informed.
[2021-03-14 19:12] VITALS: BP 115/81
[2021-03-14 19:30] VITALS: BP 115/81
--- NOTE | 2021-03-15 01:30 | NUR ---
PATIENT CARE WAS RESUMED AT 1900. SHE WAS IN THE ROOM SLEEPING. SHE IS IS A MODERATE ASSIT WITH CARE . ABLE TO VERBALIZE CONCERSNS. SHE IS ALERT AND ORIENTED X3. SHE IS CONTINIET OF BOWEL AND BLADDER. SHE TOOK HER MEDS WHOLE. LUNGS ARE CLEAR, BS ACTIVE X4 QUADS. SHE DENIES SI/AVH/HI. SHE WAS SLEEPING IN BED WITH HER HEAD ON THE FOOT SIDE OF THE BED. Q 12MINUTES CHECKS ARE ONGOING.
[2021-03-15 08:40] VITALS: BP 141/88
--- NOTE | 2021-03-15 10:30 | NUR ---
PATIENT HAS BEEN UP, AND OUT ON THE UNIT, AMBULATES WITH STEADY GAIT. PATIENT TOOK ALL MEDICATION WHOLE WITHOUT DIFFICULTY, SHE IS EATING MEALS, AND DRINKING FLUID FAIRLY WELL. PATIENT DENIES SUICIDAL/HOMICIDAL IDEATION, SHE DENIES DEPRESSION/ANXIETY, DENIES AUDITORY/VISUAL HALLUCINATION. LCTA, RESP EVEN/UNLABORED, NO SOA/CYANOSIS NOTED. BS+X4, ABD SOFT, NON-TENDER TO TOUCH. PATIENT DENIES HAVING PHYSICAL PAIN. AFFECT IS LABILE, MOOD EUTHYMIC. NO SIGN OF ACUTE DISTRESS NOTED AT THIS TIME, WILL MONITOR OR SAFETY.
[2021-03-15 19:30] VITALS: BP 128/77
[2021-03-15 19:32] VITALS: BP 128/77
--- NOTE | 2021-03-16 05:02 | NUR ---
PATIENT CARE WAS RESUMED AT 1900. SHE WAS IN HER ROOM SLEEPING ING IN BED. SHE IS ABLE TO VERBALIZED HER NEEDS. LUNGS ARE CLEAR BS ACTIVE X4 QUAD. SHE IS CONTINIT OF BOWEL AND BLADDER. SHE TOOK HER MEDS WHOLE. DENIES PAINS AND DISCOMFORT/SI/AVH/HI AT THIS TIME. BED IS LOW, LOCKED AND SHE HAS A NONE SKID SOCKS ON.NO BEHAVIOR NOTED AT THIS TIME
--- NOTE | 2021-03-16 08:52 | NUR ---
Nutrition follow up: Pt noted with continued behaviors, manic state. Haldol increased and mirtazapine added. No new weight since 03/07. Staff reports pt eating/drinking well with 75-100% avg intakes on regular diet. Remains low nutrition risk.
[2021-03-16 09:02] VITALS: BP 116/65
[2021-03-16 09:42] VITALS: BP 116/65
--- NOTE | 2021-03-16 11:59 | NUR ---
Patient care resummed; patient resting comfortably in bed; HOT MILL ROLLER notes 4 bedrails up in room, Patient states "I put them up, because I fear rolling out of bed when I sleep." Patient informed of increased risk to fall if she left them up; Patient understood and states she will keep them up until she decides to put them down. Patient A&O*4; Lmyc-Juzgrtrkhnz-Iyzbxrg, Sarcastic at times; Lung sounds clear, nonlabored; Abdomen soft, nondistendedm with BS Present*4; VSS on RoomAir; Denies SI/HI/AVH; Denies pain at this time; Wound to the Left pinky toe, D/C/I; Fall precautions in place for safety; Will continue to monitior for safety and behaviors;
--- NOTE | 2021-03-16 16:40 | NUR ---
SW emailed Cat at [facility] concerning discharge. They are able to accept the Pt back. Discharge set for 03/20/2020 @ 9310. Pt will be transported [facility].
[2021-03-16 19:25] VITALS: BP 106/85
[2021-03-16 19:30] VITALS: BP 106/85
--- NOTE | 2021-03-17 05:15 | NUR ---
patient care was resumed 1899. she is laying in bed and she is able to verbalizze her needs. she is continent of bowel and bladder. lungs are clear bs active x quads. she ambulates and she denies pains/si/avh/hi. she took her meds whole and bed is low, locked. she is cooperative with care. non skid socks on.
[2021-03-17 09:23] VITALS: BP 121/84
[2021-03-17 11:08] VITALS: BP 121/84
--- NOTE | 2021-03-17 15:40 | NUR ---
Patient care resummed; patient lying supine in bed; A&O*4; gyxg-nptmrqrfglg-bfjmcmlm; medication and meal compliant; Lung sounds clear bilaterally, although diminished bases; Abdomen soft, nondistended, BSP*4; LBM stated 03/17/21; Wound to the Left Pinky Toe D/C/I; Denies SI/HI/AVH, Pain, Anxiety, Depression; Patient states she feels so much better than the day she got here; Will continue to monitior for safety and behaviors;
--- NOTE | 2021-03-17 19:41 | NUR ---
Assumed care on 03/17/21 @ 1900, seated in the day room watching [employer] show on tv. ambulates with walker, A&Ox3, IV in Left forearm s.l. Covid19 PCR scheduled for 03/19/21. Will continue to monitor for safety and comfort as per unit protocol.
[2021-03-17 19:51] VITALS: BP 107/72
[2021-03-17 19:54] VITALS: BP 107/72
--- NOTE | 2021-03-17 20:07 | NUR ---
Assumed care on 03/17/21 @ 1900, A&Ox4 HRRR Lung CTA bilat, ABD N x 4Q, reports bm on 03/16, ambulates with a steady gait. Will continue to observe for safety and comfort as per unit protocol.
[2021-03-17 22:14] VITALS: BP 107/72
[2021-03-18 09:35] VITALS: BP 115/75
--- NOTE | 2021-03-18 15:33 | NUR ---
Assumed care from overnight shift this am. Client was in activity area resting on couch. Client presented anxious but happy at this time with personal appearence eccentric and hair unkempt. Client was oriented to self, place, and time, though did not appear to understand situation. Client stated some depression and anxiety at this time, and stated that her medications helped her with this. Client denied any suicidal or homicidal intent. Client denied any hallucinations at this time. Client bowel sounds active, with last BM this morning. Client lung sounds clear and diminished. Generalized pain for which scheduled tylenol 1000 mg was given which provided complete pain relief. Client was pleasant during interaction, and voiced wanting [facility], visit her grandchild that was born recently, and visit her son. No further issues at this time.
--- NOTE | 2021-03-18 17:16 | NUR ---
Primary nursing care done by Eliana Arnett LPN. Alert and orientated X4. Denies SI/HI. Wants bed alarm turned off. Breath sounds clear. Reg HR auscultated. Color pink with brisk capillary refill and palpable peripheral pulses. No edema noted. Independent with voiding. Active bowel sounds over soft, rounded abdomen. Ambulates with regular, steady gait.
--- NOTE | 2021-03-18 21:49 | NUR ---
At onset of shift nurse manager pt was sitting in day room watching TV. This shift pt was ap ad shannan, alert and oriented x4. Affect was broad. Pt was compliant with medication and vital signs. Pt was irritable with a peer in the day room. Peer was not wearing a mask and pt attempted to direct pt to wear a mask. Other than this pt was calm, pleasant and cooperative with staff. Social with other female peer. Appearance is unkempt. Pt stated that she came to the hospital because her roommate was triggering her PTSD. Pt denied SI, HI and AVH. Denied depression and anxiety. Pt is low fall risk. Will continue to monitor.
[2021-03-19 08:49] VITALS: BP 142/96
[2021-03-19 09:34] VITALS: BP 142/96
--- NOTE | 2021-03-19 16:51 | NUR ---
Assumed pt care this morning from overnight shift. Client was in room resting on bed at this time. Client voiced that she was tired and wanted to continue to sleep at this time. Client was alert and oriented 4x, and presented in a tired, but calm demeanor. Client was slightly irritable at being woken up and was fussy when asked her daily questions. Client denied any depression and anxiety. Client also denied any hallucinations at this time. Client denied any suicidal or homicidal ideation. Client lung sounds were clear. Bowel sounds were present. Last BM 03/18/21. All medications taken and well tolerated. No further concerns at this time.
[2021-03-19 19:30] VITALS: BP 124/79
[2021-03-19 20:15] VITALS: BP 124/79
--- NOTE | 2021-03-19 21:06 | NUR ---
Assumed care on 03/19/21 @ 1900, A&Ox4, pleasant affect noted, cooperative with assessment, HRRR, Lung sounds CTA bilat, ABD N x 4Q. Showered herself this afternoon, washed hair. Compliant with medications. Denies anxiety and depression, denies SI/HI. Retired to bed @ HS, will continue to monitor for safety and comfort as per unit protocol.
[2021-03-20 08:50] VITALS: BP 137/82
[2021-03-20 11:07] VITALS: BP 137/82
[2021-03-20] MEDS ORDERED: DEPAKOTE500 MG PO (12:15)
[2021-03-20] MEDS ORDERED: REMERON 30 MG T30 M1 PO (12:15)
[2021-03-20] MEDS ORDERED: HALOPERIDOL 5 MG5 MG PO (12:16)
[2021-03-20] MEDS ORDERED: KLOR-CON M2020 MEQ PO (12:16)
--- NOTE | 2021-03-20 14:27 | NUR ---
DISCHARGE INSTRUCTIONS REVIEWED WITH PATIENT AND REPORT CALLED TO [facility] [employer]-TRANSPORTED BY [facility] [employer] STAFF IN WC-TO AWAITING TRANSPORT VAN. UP IN MOOD AT TIME OF DC. ALERT-DENIES SI/SH/HI/ DENIES PAIN/DISCOMFORT OR ACUTE ANXIETY-STATES SHE IS EAGER TO BE BACK AT FACILITY
--- NOTE | 2021-03-21 17:20 | D ---
[facility] [place] [address] DISCHARGE SUMMARY Name: TANYA MULLINS Room #: 517-A [facility] M.R.#: [id number] Admission: 03/07/21 Attend Phys: Jhon Ly DO Discharge: 03/20/21 Date of : 64 Report #: [id number] THIS REPORT FOR: cc: Abilio Bellamy MD, Shyam MD Kerstein,Jhon Haley DO ~ DATE OF SERVICE: 03/20/2021 INPATIENT PSYCHIATRIC DISCHARGE SUMMARY ATTENDING PSYCHIATRIST: Jhon Ly DO LOAN COORDINATOR: Jhon Devi MD DISCHARGE DIAGNOSES: Bipolar 1 disorder, most recent episode manic with psychotic features, improved. Additional morbidities are as follows: Hypokalemia, replaced. Anemia, stable. Hypertension. Hypothyroidism, on replacement. The patient is discharging to [facility] for long-term care, psychiatric medical care per receiving facility. ADDITIONAL INFORMATION: The patient's diet is regular. Activity level as tolerated. No alcohol, no smoking, no illicit drugs. The patient needs prompting with bathing. LABORATORY DATA: Significant laboratories this admission: Hematology from 03/10/2021, white count 3.7, which is improved from 03/09/2021 H and H of 9.7 and 30.8 and improved from 03/09/2021, platelet count 249. Chemistries from 03/09/2021: Sodium 141, potassium 4.1, chloride 104, bicarbonate 28, anion gap 9, BUN 18, creatinine 0.8, estimated GFR 73, glucose 86, calcium 9.1, magnesium 1.7. Iron 30, TIBC 336, percent sat 9, unsaturated IBC 306, ferritin 17. B12 normal at 542. Folate 24.2. TSH was originally done on 03/08/2021 and for some reason repeated on 03/10/2021, it did jump from 1.305 to 3.219. The patient probably had been noncompliant. Depakote level last done 03/12/2021 was 92. COVID-19 serology was not detected on 03/10/2021, 03/12/2021, 03/16/2021, and 03/19/2021. DISCHARGE MEDICATIONS: List as follows: Tylenol 650 mg oral q. 6 hours p.r.n. for pain, furosemide 40 mg oral daily for hypertension, Lactobacillus rhamnosus probiotic 1 tablet oral daily, magnesium oxide 40 mg oral daily for supplementation, metoprolol succinate 12.5 mg oral daily for hypertension, multivitamin oral daily, Protonix 40 mg oral twice daily, lidocaine Salonpas 1 each topical daily as needed for muscle pain, Depakote sodium DR 500 mg oral twice daily for mood stabilization, mirtazapine 7.5 mg oral at bedtime for sleep and appetite, haloperidol 7.5 mg oral twice daily for psychosis, potassium chloride 20 mEq oral daily for supplementation due to Lasix therapy. IMAGING THIS ADMISSION: None. [address] [address] DISCHARGE SUMMARY Name: TANYA MULLINS Room #: 517-A [facility] Rosalio.Olivia#: [id number] Admission: 03/07/21 Attend Phys: Jhon Ly DO Discharge: 03/20/21 Date of : 64 Report #: [id number] MICROBIOLOGY THIS ADMISSION: None. REASON FOR PSYCHIATRIC ADMISSION: Back on 03/07/2021, a 61-year-old female sent out from [facility], she is a patient of Dr. Bellamy there. She was apparently dropped off by [place] [employer] for combative behaviors. Her DPOA was enacted this admission. She has a son who is her DPOA. HOSPITAL COURSE: The patient was very disorganized, manic, elevated mood. She initially did not respond to Depakote alone. Haloperidol was added. The patient became more reasonable and did not appear to be responding to external stimuli. Though the patient has essentially delusion about getting her own apartment and living on her own, I have advised her this is not a good idea and I would keep her DPOA enacted in the nursing facility as I just do not think she can make it given her long rather tenuous history. VITAL SIGNS: On day of discharge, temperature 36.6, pulse 107, respirations 19, BP 137/82, sat 97%. MUSCULOSKELETAL: Fair hygiene. Normal gait and station. MENTAL STATUS EXAMINATION: Well-developed, older than age-appearing female. Attention and concentration fair. Speech normal rate. Thought process: Linear and goal directed. Thought content focused on discharge, eventually moving on her own. denies suicidial ideations, denied homiocidal ideations, denied hopelessness, denied helplessness Mood and affect was okay, euthymic, congruent, fair range. Memory not formally tested. Insight and judgment is limited. Fund of knowledge, no greater than average. PROGNOSIS: Prognosis for this patient is guarded given long history of mental illness, history of substance use disorder, need for residential placement before she is 62 years of age. <ELECTRONICALLY SIGNED> By: Jhon Ly, 03/21/21 1720 1753 1823 Jhon Ly, DO /nt
== END 2021-03-20 12:59 | DRG 885 ==
LOC: SBH
PROVIDERS: Hospitalist; Nurse Practitioner; ADMIT Psychiatry & Neurology Psychiatry; ATTEND Psychiatry & Neurology Psychiatry
DX: F31.2 Bipolar disorder, current episode manic severe with psychotic features (principal); I11.0 Hypertensive heart disease with heart failure; I42.9 Cardiomyopathy, unspecified; I50.9 Heart failure, unspecified; F41.9 Anxiety disorder, unspecified; E03.9 Hypothyroidism, unspecified; E87.6 Hypokalemia; D64.9 Anemia, unspecified; Z20.822 Contact with and (suspected) exposure to COVID-19; Z86.718 Personal history of other venous thrombosis and embolism; Z87.891 Personal history of nicotine dependence; Z79.899 Other long term (current) drug therapy; Z28.21 Immunization not carried out because of patient refusal
CPT/HCPCS: 10880